=== PATIENT | female | born 1990 ===

== ENCOUNTER 2017-12-19 14:45 | Inpatient (IN) | payer OTHER ==
[~2017-12-19] VITALS: Ht 160 cm; Wt 3.6 kg
[2018-01-17] MEDS ORDERED: PRENATAL FORMU1 EAC1 PO (15:15)
== END 2018-01-19 19:32 | disposition home or self-care (01) | DRG 766 ==
LOC: LDR 01-05 14:45 → O/R 01-17 11:08 → LDR 01-17 11:08 → O/R 01-17 13:40 → OB/GYN 01-17 15:49
PROVIDERS: Specialist
PROC: 0UL70ZZ Occlusion of Bilateral Fallopian Tubes, Open Approach (ICD-10-PCS; 2018-01-17)
PROC: 10907ZC Drainage of Amniotic Fluid, Therapeutic from Products of Conception, Via Natural or Artificial Opening (ICD-10-PCS; 2018-01-17)
PROC: 4A033R1 Measurement of Arterial Saturation, Peripheral, Percutaneous Approach (ICD-10-PCS; 2018-01-17)
PROC: 4A1HXCZ Monitoring of Products of Conception, Cardiac Rate, External Approach (ICD-10-PCS; 2018-01-17)
PROC: 10D00Z1 Extraction of Products of Conception, Low, Open Approach (ICD-10-PCS; principal; 2018-01-17 14:00)
DX: O76 Abnormality in fetal heart rate and rhythm complicating labor and delivery (principal); O99.824 Streptococcus B carrier state complicating childbirth; Z3A.40 40 weeks gestation of pregnancy; Z37.0 Single live birth; Z30.2 Encounter for sterilization